=== PATIENT | male | born 2000 | race Native Hawaiian/Other Pacific Islander ===

== ENCOUNTER 2022-07-27 15:13 | Emergency (ER) | payer OTHER ==
[~2022-07-27] VITALS: Ht 177.8 cm; Wt 79.4 kg
[2022-07-27 15:17] VITALS: TEMP 98.7
[2022-07-27] MEDS ORDERED: 904272561 PO (15:54)
[2022-07-27 16:42] VITALS: BP 112/74
== END 2022-07-27 16:42 | disposition home or self-care (01) ==
LOC: ED 15:13
DX: L03.113 Cellulitis of right upper limb (principal); X08.8XXA Exposure to other specified smoke, fire and flames, initial encounter; Y92.89 Other specified places as the place of occurrence of the external cause
CPT/HCPCS: 96372; 99282; J1885

== ENCOUNTER 2023-04-09 14:31 | Outpatient (CLI) | payer OTHER ==
[~2023-04-09 14:31] MED LIST: 904272561 PO
[2023-04-09 15:05] LABS: PLATELET COUNT 159 K/uL (142-355)
[2023-04-09 15:40] LABS: POTASSIUM 3.7 mmol/L (3.6-5.2)
== END 2023-04-09 20:57 | disposition home or self-care (01) ==
LOC: RAD 14:31
PROVIDERS: ATTEND Registered Nurse
DX: R53.83 Other fatigue (principal); R10.32 Left lower quadrant pain
CPT/HCPCS: 36415; 80053; 85027; Q9963